=== PATIENT | male | born 1975 | race Two or more races ===

== ENCOUNTER 2023-04-06 09:19 | Emergency (ER) | payer MEDICAID ==
[~2023-04-06] VITALS: Ht 175.3 cm; Wt 121.9 kg
[2023-04-06 10:22] VITALS: BP 146/93
[2023-04-06] MEDS ORDERED: IBUP-1455 PO (10:52)
== END 2023-04-06 10:53 | disposition home or self-care (01) ==
LOC: ER 09:19
DX: S90.31XA Contusion of right foot, initial encounter (principal); X58.XXXA Exposure to other specified factors, initial encounter; Y93.89 Activity, other specified; Y92.89 Other specified places as the place of occurrence of the external cause; Y99.8 Other external cause status
CPT/HCPCS: 73630